=== PATIENT | female | born 1995 | race Two or more races ===

== ENCOUNTER 2016-06-10 14:34 | Emergency (ER) | payer MEDICAID ==
[~2016-06-10] VITALS: Ht 162.6 cm; Wt 59.9 kg
[~2016-06-10 14:34] MED LIST: ACE3T PO; FER325T PO; LEVO-28 PO
[2016-06-10 15:49] LABS: Basophils # (auto) 0 uL; Basophils % (auto) 0.4 % (0.0-2.0); DEFINITIVE VIEW TRANSMISSION; Eosinophils # (auto) 0.2 uL; Eosinophils % (auto) 1.8 % (0.0-7.0); Hematocrit 35.2 % (36.0-46.0); Lymphocytes # (auto) 2.8 uL; Lymphocytes % (auto) 23.3 % (10.0-50.0); Mean Corpuscular Hgb Conc. 31.3 g/dL (32.0-36.0); Mean Corpuscular Volume 70.1 fL (80.0-100.0); Mean Platelet Volume 9.1 fL (7.4-10.4); Monocytes # (auto) 0.8 uL; Monocytes % (auto) 6.9 % (0.0-12.0); Neutrophils # (auto) 8.1 uL; Neutrophils % (auto) 67.6 % (37.0-80.0); Platelet Count (auto) 382 10^3/uL (140-450); Red Cell Distribution Width 19.5 % (11.6-16.0)
[2016-06-10 15:58] LABS: Albumin 3.9 g/dL (3.4-5.0); BUN/Creatinine Ratio 17.9; Bilirubin, Total 0.2 mg/dL (0.2-1.0); Potassium 3.3 mmol/L (3.5-5.1); Total Protein 7.8 g/dL (6.4-8.2)
[2016-06-10] MEDS ORDERED: SODIUM CHLORIDE 0.9% 1,000 ML IVB ONE (18:14)
[2016-06-10] MEDS ORDERED: PANTOPRAZOLE SODIUM 40 MG/10 ML VIAL IV ONE (18:15)
[2016-06-10] MEDS ORDERED: HYDROmorphone HCL 2 MG/ML VL IV ONE (18:15)
[2016-06-10] MEDS ORDERED: ONDANSETRON HCL 4 MG/2 ML VIAL IV ONE (18:15)
[2016-06-10 18:50] LABS: Amylase 63 U/L (25-115)
[2016-06-10 18:58] VITALS: BP 122/75
[2016-06-10 19:38] LABS: Anisocytosis Moderate; Microcytosis Moderate; Ovalocytes MODERATE; Platelet Estimate Adequate
== END 2016-06-10 22:15 | disposition home or self-care (01) ==
LOC: ER 14:38
DX: R10.13 Epigastric pain (principal); D72.829 Elevated white blood cell count, unspecified; Z90.49 Acquired absence of other specified parts of digestive tract; F12.10 Cannabis abuse, uncomplicated
CPT/HCPCS: 36415; 80053; 82150; 83690; 85025; 85049; 94761; 96361; 96374; 96375; 99284; C9113; J1170; J2405; J7030

== ENCOUNTER 2016-06-15 08:23 | Emergency (ER) | payer MEDICAID ==
[~2016-06-15] VITALS: Ht 162.6 cm; Wt 60.3 kg
[2016-06-15] MEDS ORDERED: SODIUM CHLORIDE 0.9% 1,000 ML IV ONE (10:04)
[2016-06-15] MEDS ORDERED: PROMETHAZINE HCL 25 MG/ML 1ML IV ONE (10:15)
[2016-06-15] MEDS ORDERED: NALBUPHINE HCL 10 MG/1ml INJECTION IV ONE ×2 (10:15→13:45)
[2016-06-15 10:43] LABS: Urine Bilirubin Negative (Negative); Urine Blood Negative /uL (Negative); Urine Color Yellow (Yellow); Urine Glucose Normal (Normal); Urine Ketone 1+ (Negative); Urine Mucus FEW (None Seen); Urine Nitrite Negative (Negative); Urine RBC 2 /hpf (0 - 4); Urine Squamous Epithelial Cell FEW /hpf (<5); Urine Urobilinogen Normal (Negative)
[2016-06-15] MEDS ORDERED: IOHEXOL 300 MG/ML 100ML BOTTLE IJ ONE (10:46)
[2016-06-15] MEDS ORDERED: GASTROGRAFIN 30 ML SOL ONE (10:47)
[2016-06-15 11:08] LABS: Basophils # (auto) 0 uL; Basophils % (auto) 0.1 % (0.0-2.0); DEFINITIVE VIEW TRANSMISSION; Eosinophils # (auto) 0 uL; Eosinophils % (auto) 0.5 % (0.0-7.0); Hematocrit 29.8 % (36.0-46.0); Hemoglobin 9.1 g/dL (12.2-16.2); Lymphocytes # (auto) 1.2 uL; Lymphocytes % (auto) 12.2 % (10.0-50.0); Mean Corpuscular Hemoglobin 21.1 pg (28.0-32.0); Mean Corpuscular Hgb Conc. 30.4 g/dL (32.0-36.0); Mean Corpuscular Volume 69.3 fL (80.0-100.0); Mean Platelet Volume 8.8 fL (7.4-10.4); Monocytes # (auto) 0.2 uL; Monocytes % (auto) 2.1 % (0.0-12.0); Neutrophils # (auto) 8.5 uL; Neutrophils % (auto) 85.1 % (37.0-80.0); Platelet Count (auto) 362 10^3/uL (140-450); White Blood Cell 9.9 10^3/uL (4.4-10.8)
[2016-06-15 11:30] LABS: Albumin 3.5 g/dL (3.4-5.0); BUN/Creatinine Ratio 9.7; Bilirubin, Total 0.2 mg/dL (0.2-1.0); Magnesium 1.9 mg/dL (1.6-2.6); Total Protein 6.3 g/dL (6.4-8.2)
[2016-06-15 11:38] LABS: Potassium 2.6 mmol/L (3.5-5.1)
[2016-06-15 11:53] LABS: Anisocytosis Slight; Hypochromia Moderate; Platelet Estimate Adequate
[2016-06-15 13:43] LABS: Urine Bilirubin Negative (Negative); Urine Blood Negative /uL (Negative); Urine Color Colorless (Yellow); Urine Glucose Normal (Normal); Urine Ketone 1+ (Negative); Urine Nitrite Negative (Negative); Urine RBC <1 /hpf (0 - 4); Urine Squamous Epithelial Cell FEW /hpf (<5); Urine Urobilinogen Normal (Negative)
[2016-06-15] MEDS ORDERED: ONDANSETRON HCL 4 MG/2 ML VIAL IV ONE (13:45)
[2016-06-15] MEDS ORDERED: POTASSIUM CHL 10% (20 MEQ/15ML) ORAL SOLN PO ONE (16:15)
[2016-06-15] MEDS ORDERED: cefTRIAXone 1GM/50ML D5W 50 ML IV ONE (16:15)
[2016-06-15] MEDS ORDERED: DEXAMETHASONE SOD PHOS 4 MG/1ML SDV INJ IV ONE (16:15)
[2016-06-15] MEDS ORDERED: POTASSIUM CHL 10 Meq TABLET PO ONE (17:00)
[2016-06-15 17:25] VITALS: BP 122/72
== END 2016-06-15 17:38 | disposition home or self-care (01) ==
LOC: ER 08:24
DX: K52.9 Noninfective gastroenteritis and colitis, unspecified (principal); N39.0 Urinary tract infection, site not specified; E87.6 Hypokalemia; D50.9 Iron deficiency anemia, unspecified; Z90.49 Acquired absence of other specified parts of digestive tract; J66.2 Cannabinosis; R11.2 Nausea with vomiting, unspecified; F12.10 Cannabis abuse, uncomplicated; Z79.899 Other long term (current) drug therapy
CPT/HCPCS: 36415; 74177; 80053; 81001; 81002; 81025; 83735; 84443; 85025; 96361; 96365; 96375; 96376; 99285; G0434; J0696; J1100; J2300; J2405; J2550; J7030; J7050; Q9963; Q9967

== ENCOUNTER 2017-03-16 09:59 | Emergency (ER) | payer MEDICAID ==
[~2017-03-16] VITALS: Ht 162.6 cm; Wt 63.5 kg
[2017-03-16 10:38] LABS: Basophils # (auto) 0 uL; Basophils % (auto) 0.1 % (0.0-2.0); Eosinophils # (auto) 0 uL; Hematocrit 40.1 % (36.0-46.0); Hemoglobin 13.1 g/dL (12.2-16.2); Lymphocytes # (auto) 1.7 uL; Lymphocytes % (auto) 11.7 % (10.0-50.0); Mean Corpuscular Hemoglobin 28.7 pg (28.0-32.0); Mean Corpuscular Hgb Conc. 32.7 g/dL (32.0-36.0); Mean Corpuscular Volume 87.7 fL (80.0-100.0); Mean Platelet Volume 7.9 fL (6.9-10.8); Monocytes # (auto) 0.9 uL; Monocytes % (auto) 5.8 % (0.0-12.0); Neutrophils # (auto) 12.2 uL; Neutrophils % (auto) 82.4 % (37.0-80.0); Platelet Count (auto) 283 10^3/uL (140-450); Red Cell Distribution Width 14.1 % (11.8-14.3); White Blood Cell 14.8 10^3/uL (4.4-10.8)
[2017-03-16 11:06] LABS: Albumin 4.4 g/dL (3.4-5.0); BUN/Creatinine Ratio 13.2; Bilirubin, Total 0.9 mg/dL (0.2-1.0); Calcium 9.1 mg/dL (8.5-10.1); Potassium 3.1 mmol/L (3.5-5.1); Total Protein 8.3 g/dL (6.4-8.2)
[2017-03-16] MEDS ORDERED: SODIUM CHLORIDE 0.9% 1,000 ML IVB ONE (13:03)
[2017-03-16] MEDS ORDERED: PANTOPRAZOLE 40 MG/10 ML VIAL IV STA (13:03)
[2017-03-16] MEDS ORDERED: MORPHINE SULFATE 10 MG/ML INJ 1ML SDV IV ONE (13:15)
[2017-03-16] MEDS ORDERED: PROCHLORPERAZINE EDISYLATE 5 MG/ML 2ML VIAL IV ONE (13:15)
[2017-03-16 13:46] LABS: Magnesium 2.1 mg/dL (1.6-2.6)
[2017-03-16 14:21] VITALS: BP 104/50
[2017-03-16 18:11] LABS: Urine Bilirubin Negative (Negative); Urine Blood Negative /uL (Negative); Urine Color Yellow (Yellow); Urine Glucose Normal (Normal); Urine Ketone 2+ (Negative); Urine Nitrite Negative (Negative); Urine RBC <1 /hpf (0 - 4); Urine Squamous Epithelial Cell FEW /hpf (<5); Urine Urobilinogen Normal (Negative); Urine pH 6.5 (5.0-8.0)
== END 2017-03-16 18:00 | disposition home or self-care (01) ==
LOC: ER 09:59
DX: F12.929 Cannabis use, unspecified with intoxication, unspecified (principal); Z90.49 Acquired absence of other specified parts of digestive tract
CPT/HCPCS: 36415; 80053; 80307; 81001; 82150; 83690; 83735; 85025; 94761; 96361; 96374; 96375; 99284; C9113; J0780; J2270; J7030

== ENCOUNTER 2017-03-17 08:43 | Emergency (ER) | payer MEDICAID ==
[~2017-03-17] VITALS: Ht 162.6 cm; Wt 67.1 kg
[2017-03-17] MEDS ORDERED: KETOROLAC TROMETH 30 MG/ML 1ML VIAL IV ONE (09:00)
[2017-03-17] MEDS ORDERED: SODIUM CHLORIDE 0.9% 1,000 ML IV ONE ×2 (09:03)
[2017-03-17] MEDS ORDERED: IOHEXOL 300 MG/ML 100ML BOTTLE IJ ONE (09:08)
[2017-03-17] MEDS ORDERED: ONDANSETRON HCL 4 MG/2 ML VIAL IV ONE (09:15)
[2017-03-17] MEDS ORDERED: LORazepam 2MG/ML-1ML VIAL IV ONE (09:45)
[2017-03-17 10:09] LABS: Basophils # (auto) 0 uL; Basophils % (auto) 0.2 % (0.0-2.0); Eosinophils # (auto) 0 uL; Eosinophils % (auto) 0.1 % (0.0-7.0); Hematocrit 38.8 % (36.0-46.0); Hemoglobin 12.9 g/dL (12.2-16.2); Lymphocytes # (auto) 1.6 uL; Lymphocytes % (auto) 12.4 % (10.0-50.0); Mean Corpuscular Hemoglobin 29.1 pg (28.0-32.0); Mean Corpuscular Hgb Conc. 33.2 g/dL (32.0-36.0); Mean Corpuscular Volume 87.7 fL (80.0-100.0); Mean Platelet Volume 7.9 fL (6.9-10.8); Monocytes # (auto) 0.4 uL; Monocytes % (auto) 3.2 % (0.0-12.0); Neutrophils # (auto) 11.2 uL; Neutrophils % (auto) 84.1 % (37.0-80.0); Platelet Count (auto) 247 10^3/uL (140-450); Red Cell Distribution Width 14.3 % (11.8-14.3); White Blood Cell 13.3 10^3/uL (4.4-10.8)
[2017-03-17 10:28] LABS: Amylase 49 U/L (25-115)
[2017-03-17 10:33] LABS: Urine Bilirubin Negative (Negative); Urine Blood 2+ /uL (Negative); Urine Color Yellow (Yellow); Urine Glucose Normal (Normal); Urine Ketone 1+ (Negative); Urine Mucus FEW (None Seen); Urine Nitrite Negative (Negative); Urine RBC 5 /hpf (0 - 4); Urine Squamous Epithelial Cell FEW /hpf (<5); Urine Urobilinogen Normal (Negative)
[2017-03-17 10:48] LABS: Albumin 4.1 g/dL (3.4-5.0); Alkaline Phosphatase 73 U/L (45-117); Anion Gap 10 (5-15); Aspartate Aminotransferase 13 U/L (15-37); BUN/Creatinine Ratio 17.2; Bilirubin, Total 0.6 mg/dL (0.2-1.0); Blood Urea Nitrogen 11 mg/dL (7-18); Calcium 8.4 mg/dL (8.5-10.1); Carbon Dioxide 22 mmol/L (21-32); Chloride 103 mmol/L (98-107); GFR African American 151 mL/min; GFR Non-African American 125 mL/min; Glucose 126 mg/dL (74-106); Sodium 135 mmol/L (136-145); Total Protein 7.4 g/dL (6.4-8.2)
[2017-03-17] MEDS ORDERED: cefTRIAXone 1GM/50ML D5W 50 ML IV ONE (11:00)
[2017-03-17 11:02] LABS: Potassium 2.8 mmol/L (3.5-5.1)
[2017-03-17] MEDS ORDERED: POTASSIUM CHL 10% (20 MEQ/15ML) 15ml ORAL SOLN PO ONE ×2 (11:15→12:00)
[2017-03-17 12:15] VITALS: BP 105/62
== END 2017-03-17 12:23 | disposition home or self-care (01) ==
LOC: ER 08:43 → EDBD 08:43 → ER 12:23
DX: R10.9 Unspecified abdominal pain (principal); F12.10 Cannabis abuse, uncomplicated; Z90.49 Acquired absence of other specified parts of digestive tract
CPT/HCPCS: 36415; 71010; 74177; 80053; 80307; 81001; 82150; 83690; 84484; 85025; 96361; 96365; 96375; 99285; J0696; J1885; J2060; J2405; J7030; Q9967

== ENCOUNTER 2017-06-04 19:34 | Emergency (ER) | payer MEDICAID ==
[~2017-06-04] VITALS: Ht 162.6 cm; Wt 61.2 kg
[2017-06-04] MEDS ORDERED: TETANUS-DIPTH-ACEL PERTUSSIS 0.5ML SYRG IM ONE (21:30)
== END 2017-06-04 22:08 | disposition home or self-care (01) ==
LOC: ER 19:34
DX: S69.92XA Unspecified injury of left wrist, hand and finger(s), initial encounter (principal); X58.XXXA Exposure to other specified factors, initial encounter; Y93.89 Activity, other specified; Y92.89 Other specified places as the place of occurrence of the external cause; Y99.8 Other external cause status; Z79.899 Other long term (current) drug therapy; Z90.49 Acquired absence of other specified parts of digestive tract
CPT/HCPCS: 73140; 90471; 90715

== ENCOUNTER 2018-08-22 23:02 | Emergency (ER) | payer MEDICAID ==
[~2018-08-22] VITALS: Ht 162.6 cm; Wt 72.6 kg
[2018-08-22 23:23] VITALS: BP 121/87
[2018-08-22 23:34] LABS: Basophils # (auto) 0.1 uL; Basophils % (auto) 0.3 % (0.0-2.0); Eosinophils # (auto) 0.1 uL; Eosinophils % (auto) 0.6 % (0.0-7.0); Hematocrit 41.6 % (36.0-46.0); Hemoglobin 13.8 g/dL (12.2-16.2); Lymphocytes # (auto) 2.6 uL; Lymphocytes % (auto) 17.6 % (10.0-50.0); Mean Corpuscular Hemoglobin 28.7 pg (28.0-32.0); Mean Corpuscular Hgb Conc. 33.3 g/dL (32.0-36.0); Mean Corpuscular Volume 86.4 fL (80.0-100.0); Monocytes # (auto) 0.7 uL; Monocytes % (auto) 4.5 % (0.0-12.0); Neutrophils # (auto) 11.5 uL; Nucleated Red Blood Cells % 0.1 %; Platelet Count (auto) 297 10^3/uL (140-450); Red Blood Cells 4.81 10^6/uL (4.0-5.20); White Blood Cell 14.9 10^3/uL (4.4-10.8)
[2018-08-22 23:54] LABS: Albumin 4.5 g/dL (3.4-5.0); BUN/Creatinine Ratio 11.8; Potassium 3.5 mmol/L (3.5-5.1)
[2018-08-22 23:56] LABS: Bilirubin, Total 0.3 mg/dL (0.2-1.0); Total Protein 8.4 g/dL (6.4-8.2)
== END 2018-08-23 03:49 | disposition left against medical advice (07) ==
LOC: ER 23:08
DX: R10.13 Epigastric pain (principal); Z53.21 Procedure and treatment not carried out due to patient leaving prior to being seen by health care provider
CPT/HCPCS: 36415; 80053; 82150; 83690; 85025

== ENCOUNTER 2018-08-23 06:01 | Emergency (ER) | payer MEDICAID ==
[~2018-08-23] VITALS: Ht 162.6 cm; Wt 72.6 kg
[2018-08-23] MEDS ORDERED: SODIUM CHLORIDE 0.9% 1,000 ML IV ONE (06:40)
[2018-08-23] MEDS ORDERED: SODIUM CHLORIDE 0.9% 1,000 ML IVB ONE (06:40)
[2018-08-23] MEDS ORDERED: LIDOCAINE VISCOUS 2% 15ML UD PO ONE (06:45)
[2018-08-23] MEDS ORDERED: MORPHINE SULFATE 4 MG/ML SYR/VIAL IV ONE (06:45)
[2018-08-23] MEDS ORDERED: ALUM & MAG HYDROX-SIMETH LIQ(MAALOX) 30 ML PO ONE (06:45)
[2018-08-23] MEDS ORDERED: ONDANSETRON HCL 4 MG/2 ML VIAL IV ONE (06:45)
[2018-08-23] MEDS ORDERED: DONNATAL 5ml ORAL Elix (BELLADONNA ALK-PHENOBARB) PO ONE (06:45)
[2018-08-23 08:03] LABS: Basophils # (auto) 0.1 uL; Basophils % (auto) 0.5 % (0.0-2.0); Eosinophils # (auto) 0 uL; Eosinophils % (auto) 0.2 % (0.0-7.0); Hematocrit 40.5 % (36.0-46.0); Hemoglobin 13.5 g/dL (12.2-16.2); Lymphocytes # (auto) 2.5 uL; Mean Corpuscular Hgb Conc. 33.5 g/dL (32.0-36.0); Mean Corpuscular Volume 86.8 fL (80.0-100.0); Monocytes # (auto) 0.5 uL; Monocytes % (auto) 3.6 % (0.0-12.0); Neutrophils # (auto) 10.9 uL; Neutrophils % (auto) 77.7 % (37.0-80.0); Platelet Count (auto) 291 10^3/uL (140-450); Red Blood Cells 4.67 10^6/uL (4.0-5.20); Red Cell Distribution Width 13.6 % (11.8-14.3)
[2018-08-23 08:16] LABS: Albumin 4.5 g/dL (3.4-5.0); BUN/Creatinine Ratio 12.4; Calcium 9.3 mg/dL (8.5-10.1); Potassium 3.4 mmol/L (3.5-5.1)
[2018-08-23 08:19] LABS: Bilirubin, Total 0.5 mg/dL (0.2-1.0); Total Protein 8.4 g/dL (6.4-8.2)
[2018-08-23] MEDS ORDERED: KETOROLAC TROMETH 30 MG/ML 1ML VIAL IV ONE (08:45)
[2018-08-23] MEDS ORDERED: PROMETHAZINE HCL 25 MG/ML 1ML IV ONE ×2 (08:45→10:45)
[2018-08-23 09:15] LABS: Amphetamine Screen, Urine NEGATIVE (NEGATIVE); Barbiturate Scree,Urine POSITIVE (NEGATIVE); Benzodiazephine Screen, Urine NEGATIVE (NEGATIVE); Cannabinoid Screen, Urine POSITIVE (NEGATIVE); Cocaine Screen, Urine NEGATIVE (NEGATIVE); Opiate Scree,Urine NEGATIVE (NEGATIVE); Phencyclidine Screen, Urine NEGATIVE (NEGATIVE)
[2018-08-23] MEDS ORDERED: cefTRIAXone 1GM/50ML D5W 50 ML IV ONE (09:30)
[2018-08-23] MEDS ORDERED: POTASSIUM CHL 10% (20 MEQ/15ML) 15ml ORAL SOLN PO ONE (09:30)
[2018-08-23 12:15] VITALS: BP 110/70
== END 2018-08-23 13:12 | disposition home or self-care (01) ==
LOC: ER 06:03
DX: F12.90 Cannabis use, unspecified, uncomplicated (principal); R10.13 Epigastric pain; R11.2 Nausea with vomiting, unspecified; Z79.899 Other long term (current) drug therapy; Z90.49 Acquired absence of other specified parts of digestive tract
CPT/HCPCS: 36415; 74176; 80053; 80307; 81002; 81025; 82150; 83690; 85025; 96361; 96365; 96375; 96376; 99284; J0696; J1885; J2405; J2550; J7030

== ENCOUNTER → 2019-11-29 | Emergency (ER) | payer MEDICAID ==
[~2019-11-29] VITALS: Ht 162.6 cm; Wt 74.8 kg
[2019-11-29 09:03] VITALS: BP 127/68
== END | disposition home or self-care (01) ==
LOC: ER 08:49
DX: K29.70 Gastritis, unspecified, without bleeding (principal); Z90.49 Acquired absence of other specified parts of digestive tract; Z79.899 Other long term (current) drug therapy

== ENCOUNTER 2020-07-12 13:58 | Emergency (ER) | payer MEDICAID ==
[~2020-07-12] VITALS: Ht 157.5 cm; Wt 74.8 kg
[2020-07-12] MEDS ORDERED: PANTOPRAZOLE 40 MG/10 ML VIAL INJ IV STA (14:12)
[2020-07-12] MEDS ORDERED: PROCHLORPERAZINE EDISYLATE 5 MG/ML 2ML VIAL IV ONE (14:15)
[2020-07-12 14:26] LABS: Urine WBC None Seen /hpf (0 - 5)
[2020-07-12 14:28] LABS: Basophils # (auto) 0.1 10 ^3/uL (0-0.2); Basophils % (auto) 0.5 % (0.0-2.0); Eosinophils # (auto) 0.2 10 ^3/uL (0-0.8); Eosinophils % (auto) 1.6 % (0.0-7.0); Hematocrit 40.7 % (36.0-46.0); Lymphocytes # (auto) 3.2 10 ^3/uL (0.4-5.4); Lymphocytes % (auto) 31.4 % (10.0-50.0); Mean Corpuscular Hemoglobin 30.4 pg (28.0-32.0); Mean Corpuscular Hgb Conc. 34.3 g/dL (32.0-36.0); Mean Corpuscular Volume 88.6 fL (80.0-100.0); Monocytes # (auto) 0.4 10 ^3/uL (0-1.3); Neutrophils # (auto) 6.4 10 ^3/uL (1.6-8.6); Neutrophils % (auto) 62.5 % (37.0-80.0); Platelet Count (auto) 297 10^3/uL (140-450); Red Cell Distribution Width 13.9 % (11.8-14.3); White Blood Cell 10.2 10^3/uL (4.4-10.8)
[2020-07-12 14:35] LABS: Urine Bacteria NONE SEEN /hpf (None Seen); Urine Blood 1+ /uL (Negative); Urine Specific Gravity 1.026 (1.001-1.035)
[2020-07-12 14:48] LABS: Calcium 9.2 mg/dL (8.5-10.1); Potassium 3.6 mmol/L (3.5-5.1)
[2020-07-12 14:55] LABS: BUN/Creatinine Ratio 16.7; Bilirubin, Total 0.3 mg/dL (0.2-1.0); Total Protein 8.2 g/dL (6.4-8.2)
[2020-07-12 16:30] VITALS: BP 132/83
== END 2020-07-12 16:37 | disposition home or self-care (01) ==
LOC: ER 13:58
DX: R10.13 Epigastric pain (principal); F12.10 Cannabis abuse, uncomplicated; Z32.02 Encounter for pregnancy test, result negative; Z90.49 Acquired absence of other specified parts of digestive tract
CPT/HCPCS: 36415; 74176; 80053; 81001; 81025; 83690; 85025; 96374; 96375; 99284; C9113; J0780

== ENCOUNTER 2023-07-28 23:04 | Emergency (ER) | payer MEDICAID ==
[~2023-07-28] VITALS: Ht 157.5 cm; Wt 66.0 kg
[~2023-07-28 23:04] MED LIST changes: -LEVO-28 PO; +LEVO500T91 PO
[2023-07-28 23:05] VITALS: BP 137/81; RESP 14; O2SAT 99
[2023-07-28 23:36] VITALS: PULSE 85
[2023-07-28 23:57] LABS: Urine WBC None Seen /hpf (0 - 5)
[2023-07-28 23:58] LABS: Basophils # (auto) 0 10 ^3/uL (0-0.2); Basophils % (auto) 0.4 % (0.0-2.0); Eosinophils # (auto) 0.2 10 ^3/uL (0-0.8); Eosinophils % (auto) 2.3 % (0.0-7.0); Hematocrit 41.1 % (36.0-46.0); Hemoglobin 13.5 g/dL (12.2-16.2); Lymphocytes # (auto) 4.5 10 ^3/uL (0.4-5.4); Lymphocytes % (auto) 45.9 % (10.0-50.0); Mean Corpuscular Hemoglobin 29.9 pg (28.0-32.0); Mean Corpuscular Hgb Conc. 32.9 g/dL (32.0-36.0); Monocytes # (auto) 0.4 10 ^3/uL (0-1.3); Monocytes % (auto) 4.2 % (0.0-12.0); Neutrophils # (auto) 4.6 10 ^3/uL (1.6-8.6); Neutrophils % (auto) 47.2 % (37.0-80.0); Nucleated Red Blood Cells % 0.1 %; Red Blood Cells 4.51 10^6/uL (4.0-5.20); Red Cell Distribution Width 13.7 % (11.8-14.3); White Blood Cell 9.8 10^3/uL (4.4-10.8)
[2023-07-29 00:04] LABS: Urine Bacteria NONE SEEN /hpf (None Seen); Urine Blood TRACE /uL (Negative); Urine Clarity Clear (Clear); Urine Color Colorless (Yellow); Urine Protein, UAD Negative (Negative); Urine Specific Gravity 1.006 (1.001-1.035); Urine Urobilinogen Normal (Negative); Urine pH 5.5 (5.0-8.0)
[2023-07-29 00:15] LABS: Alanine Aminotransferase 10 U/L (7-40); Albumin 4.7 g/dL (3.2-4.8); Alkaline Phosphatase 57 U/L (46-116); Anion Gap 10 (5-15); Aspartate Aminotransferase < 8 U/L (13-40); BUN/Creatinine Ratio 11.1 (10.0-20.0); Blood Urea Nitrogen 9 mg/dL (9-23); Calcium 9.7 mg/dL (8.7-10.4); Carbon Dioxide 24 mmol/L (20-30); Chloride 106 mmol/L (98-107); Glucose 129 mg/dL (74-106); Potassium 3.3 mmol/L (3.5-5.1); Sodium 140 mmol/L (136-145)
[2023-07-29 00:16] LABS: Amphetamine Screen, Urine Neg (NEGATIVE); Barbiturate Scree,Urine Neg (NEGATIVE); Benzodiazephine Screen, Urine Neg (NEGATIVE); Cannabinoid Screen, Urine Pos (NEGATIVE); Cocaine Screen, Urine Neg (NEGATIVE); Opiate Scree,Urine Neg (NEGATIVE); Phencyclidine Screen, Urine Neg (NEGATIVE)
[2023-07-29 00:16] LABS: Bilirubin, Total 0.5 mg/dL (0.2-1.0); Total Protein 7.3 g/dL (5.7-8.2)
== END 2023-07-29 04:39 | disposition home or self-care (01) ==
LOC: ER 23:04
DX: R20.2 Paresthesia of skin (principal); Z90.49 Acquired absence of other specified parts of digestive tract; Z79.2 Long term (current) use of antibiotics; Z79.899 Other long term (current) drug therapy
CPT/HCPCS: 36415; 70450; 71045; 72125; 80053; 80307; 81001; 81025; 83880; 84484; 85025; 93005